=== PATIENT | male | born 1965 ===

== ENCOUNTER 2019-02-28 11:19 | Emergency (ER) | payer SELFPAY ==
[2019-02-28] MEDS ORDERED: Dexamethasone 10 MG/ML VIAL ONE (11:56)
== END 2019-02-28 12:12 | disposition home or self-care (01) ==
LOC: ERS 11:19
DX: B01.9 Varicella without complication (principal); I10 Essential (primary) hypertension
CPT/HCPCS: 96372; 99282; J1100